=== PATIENT | male | born 1985 | race Caucasian/White ===

== ENCOUNTER → 2017-03-29 | Outpatient (CLI) | payer OTHER ==
[~2017-03-29] MED LIST: BENT10CA PO; CLONI1TA PO; EFFE37.527 PO; EFFE75CA75 PO; GABA-283 PO; LEVO150T7 PO; LIDO1OIN2 TOP; LUNE2TAB23 PO; MOBI15TA PO; OMEP10CASR PO; PRAZ2CAP PO; PRAZ5CAP PO; ROBA750T4 PO; TYLETAB14 PO; [UNRECOGNIZED DRUG - CODE] EXT
[2017-03-29 11:23] LABS: BASO % 0.6 % (0.0-1.0); EOS # 0.1 K/mm3 (0.0-0.50); LARGE UNSTAINED CELL # 0.1 K/mm3 (0.0-0.4); LARGE UNSTAINED CELL % 2.1 % (0.0-4.0); LYMPH # 2.3 K/mm3 (1.5-4.5); LYMPH % 32.1 % (24.0-44.0); MEAN CORPUSCULAR HGB CONC 36.1 g/dl (32.0-36.5); MEAN CORPUSCULAR VOLUME 85.9 fl (80.0-96.0); MONO # 0.4 K/mm3 (0.0-0.8); MONO % 5.3 % (0.0-5.0); NEUTROPHILS # 3.9 K/mm3 (1.8-7.7); PLATELET COUNT, AUTOMATED 230 k/mm3 (150-450); RED CELL DISTRIBUTION WIDTH 12.6 % (11.5-14.5); WHITE BLOOD COUNT 6.6 K/mm3 (4.0-10.0)
[2017-03-29 11:58] LABS: ERYTHROCYTE SEDIMENTATION RATE 5 mm/hr (0-15)
[2017-03-29 16:01] LABS: ALBUMIN 4.3 GM/DL (3.2-5.2); ALKALINE PHOSPHATASE 83 U/L (45-117); ALT/SGPT 76 U/L (12-78); ANION GAP 6 MEQ/L (8-16); AST/SGOT 28 U/L (15-37); BILIRUBIN,TOTAL 0.9 MG/DL (0.2-1.0); BLOOD UREA NITROGEN 20 MG/DL (7-18); CALCIUM LEVEL 9.2 MG/DL (8.5-10.1); CARBON DIOXIDE LEVEL 27 MEQ/L (21-32); CHLORIDE LEVEL 101 MEQ/L (98-107); CREATININE FOR GFR 1.02 MG/DL (0.70-1.30); FREE T4 1.18 NG/DL (0.76-1.46); GLOMERULAR FILTRATION RATE > 60.0 (>60); GLUCOSE, FASTING 93 MG/DL (70-105); POTASSIUM SERUM 4.6 MEQ/L (3.5-5.1); SODIUM LEVEL 134 MEQ/L (136-145); TOTAL PROTEIN 7.6 GM/DL (6.4-8.2)
== END ==
LOC: M LAB 10:39
PROVIDERS: ATTEND Internal Medicine Gastroenterology
DX: R19.7 Diarrhea, unspecified (principal)

== ENCOUNTER → 2017-04-06 | Outpatient (CLI) | payer OTHER ==
[~2017-04-06] MED LIST changes: +GASTROGRAFIN SOLUTION 30ML (Q9963) As Ordered ONE; +ISOVUE-370 76% 100ML VIAL (Q9967) As Ordered ONE
--- NOTE | 2017-04-06 14:40 | REP ---
REASON: Diarrhea and anal hemorrhage. COMPARISON: None. CONTRAST UTILIZED: 100 mL Isovue-370. Lung bases are clear. The precontrast-enhanced portion examination shows diffuse low density throughout the hepatic parenchyma. There are no nephroliths or choleliths. Contrast-enhanced portion of the examination shows no evidence of an enhancing hepatic lesion. The gallbladder, spleen, pancreas, adrenal glands, and kidneys are within normal limits. The abdominal aorta and para-aortic regions are within normal limits. The intra-abdominal and intrapelvic bowel loops and their mesenteries are within normal limits. No free fluid or free air is seen in the abdomen or pelvis. Bone window technique throughout the examination shows the osseous structures to be within normal limits. IMPRESSION: Rather extensive appearing diffuse fatty infiltration of the liver. Signed by Nabeel Hood DO 04/06/2017 03:20 P
== END ==
LOC: M RAD 10:50
PROVIDERS: ATTEND Internal Medicine Gastroenterology
DX: K62.5 Hemorrhage of anus and rectum (principal); R19.7 Diarrhea, unspecified; K76.0 Fatty (change of) liver, not elsewhere classified
CPT/HCPCS: 74178; Q9963; Q9967

== ENCOUNTER 2017-04-17 13:06 | Outpatient (CLI) | payer OTHER ==
[~2017-04-17] VITALS: Ht 182.9 cm; Wt 145.1 kg
[~2017-04-17 13:06] MED LIST changes: -GASTROGRAFIN SOLUTION 30ML (Q9963) As Ordered ONE; -ISOVUE-370 76% 100ML VIAL (Q9967) As Ordered ONE
[2017-04-17] MEDS ORDERED: NS 1,000 ML IV ONE (13:30)
[2017-04-17] MEDS ORDERED: PROPOFOL 200 MG/20 ML VIAL As Ordered ONE (14:22)
[2017-04-17] MEDS ORDERED: LIDOCAINE 2% INJ 100 MG/5 ML SDV (FOR ANES.) As Ordered ONE (14:23)
[2017-04-17] MEDS ORDERED: MIDAZOLAM INJ 2 MG/2 ML VIAL (J2250) As Ordered ONE (15:09)
--- NOTE | 2017-04-17 15:20 | ROOR ---
Patient Name: Enrique Peres Procedure Date: 04/17/2017 2:59 PM Date of : 1985 Age: 31 [facility]: [facility] Gender: Male Note Status: Finalized Procedure: Colonoscopy Indications: Hematochezia, Change in bowel habits, fecal urgency, incomplete emptying. Providers: Usman HERNANDEZ MD Referring MD: SHELLEY ROSA MD Requesting Provider: Medicines: Monitored Anesthesia Care Complications: No immediate complications. Procedure: Pre-Anesthesia Assessment: - The heart rate, respiratory rate, oxygen saturations, blood pressure, adequacy of pulmonary ventilation, and response to care were monitored throughout the procedure. The Colonoscope was introduced through the anus and advanced to 5 cm into the ileum. The colonoscopy was performed without difficulty. The patient tolerated the procedure well. The quality of the bowel preparation was good. Findings: The perianal and digital rectal examinations were normal. Small Internal Hemorrhoids. The terminal ileum appeared normal. The colon (entire examined portion) appeared normal. Biopsies for histology were taken with a cold forceps from the entire colon for evaluation of microscopic colitis. Impression: - Small Internal Hemorrhoids. - The examined portion of the ileum was normal. - The entire colon is normal. - Biopsies were taken with a cold forceps from the entire colon for evaluation of microscopic colitis. Recommendation: - Stop Dicyclomine (ineffective), Start Miralalx 17 gm (1 capful) once a day for constipation with overflow/incomplete emptying symptoms. - (the script was sent to your pharmacy on file) - Telephone endoscopist for pathology results in 2 weeks. Usman Hernandez MD Usman HERNANDEZ MD 04/17/2017 3:19:35 PM This report has been signed electronically. Number of Addenda: 0 Note Initiated On: 04/17/2017 2:59 PM Estimated Blood Loss: Estimated blood loss: none.
[2017-04-17 15:51] VITALS: BP 121/81
== END 2017-04-17 16:00 | disposition home or self-care (01) ==
LOC: M OPP 13:06
PROVIDERS: ATTEND Internal Medicine Gastroenterology
DX: K92.1 Melena (principal); R19.4 Change in bowel habit; R15.2 Fecal urgency; R10.9 Unspecified abdominal pain; K44.9 Diaphragmatic hernia without obstruction or gangrene; I10 Essential (primary) hypertension; E03.9 Hypothyroidism, unspecified; K58.9 Irritable bowel syndrome, unspecified; R14.0 Abdominal distension (gaseous); R12 Heartburn; M19.90 Unspecified osteoarthritis, unspecified site; M54.9 Dorsalgia, unspecified; F41.9 Anxiety disorder, unspecified; F32.9 Major depressive disorder, single episode, unspecified; G43.909 Migraine, unspecified, not intractable, without status migrainosus; M47.892 Other spondylosis, cervical region; M47.896 Other spondylosis, lumbar region; R06.02 Shortness of breath; F43.10 Post-traumatic stress disorder, unspecified
CPT/HCPCS: 45380; 88305; J2250

== ENCOUNTER 2018-05-07 17:38 | Emergency (ER) | payer OTHER ==
[2018-05-07] MEDS: NS 1,000 ML IV ×2 (17:57→18:45)
[2018-05-07 18:40] LABS: ANION GAP 13 MEQ/L (8-16); BLOOD UREA NITROGEN 28 MG/DL (7-18); CALCIUM LEVEL 9.9 MG/DL (8.5-10.1); CARBON DIOXIDE LEVEL 22 MEQ/L (21-32); CHLORIDE LEVEL 102 MEQ/L (98-107); GLOMERULAR FILTRATION RATE 36.9 (>60); GLUCOSE, FASTING 101 MG/DL (70-100); SODIUM LEVEL 137 MEQ/L (136-145)
== END 2018-05-07 19:26 | disposition home or self-care (01) ==
LOC: M ED 17:38
DX: E86.0 Dehydration (principal); T67.2XXA Heat cramp, initial encounter; X30.XXXA Exposure to excessive natural heat, initial encounter; Y92.89 Other specified places as the place of occurrence of the external cause; E07.9 Disorder of thyroid, unspecified; Z79.899 Other long term (current) drug therapy; Z79.890 Hormone replacement therapy; Z87.891 Personal history of nicotine dependence
CPT/HCPCS: 80048

== ENCOUNTER → 2019-06-09 | Outpatient (REF) | payer OTHER ==
[~2019-06-09] MED LIST changes: +EFFE37.5 PO; -EFFE37.527 PO; +EFFE75CA2 PO; -EFFE75CA75 PO; -GABA-283 PO; +GABA-845 PO
[2019-06-09 12:29] LABS: BLOOD UREA NITROGEN 20 MG/DL (7-18); CALCIUM LEVEL 9.8 MG/DL (8.5-10.1); CARBON DIOXIDE LEVEL 29 MEQ/L (21-32); CHLORIDE LEVEL 100 MEQ/L (98-107); CREATININE FOR GFR 0.95 MG/DL (0.70-1.30); GLOMERULAR FILTRATION RATE > 60.0 (>60); GLUCOSE, FASTING 100 MG/DL (70-100); POTASSIUM SERUM 4.4 MEQ/L (3.5-5.1); SODIUM LEVEL 136 MEQ/L (136-145)
== END ==
LOC: M SFHCPLAZ 08:58
PROVIDERS: ATTEND Family Medicine
DX: I10 Essential (primary) hypertension (principal)

== ENCOUNTER 2019-09-05 08:25 | Inpatient (IN) | payer OTHER ==
[~2019-09-05] VITALS: Ht 180.3 cm; Wt 146.0 kg
[2019-09-05] MEDS ORDERED: VALS1TAB66 PO (08:35)
[2019-09-05] MEDS ORDERED: VENL150C43 PO (08:35)
[2019-09-05] MEDS ORDERED: CHLO125TA PO (08:35)
[2019-09-05] MEDS ORDERED: IBUPROFEN 800 MG TAB PO ONE (09:00)
[2019-09-05] MEDS ORDERED: NS 1,000 ML IV ONE (09:30)
[2019-09-05 09:57] LABS: BASO # 0.1 10^3/uL (0.0-0.2); BASO % 0.2 % (0.0-1.0); HEMATOCRIT 46.5 % (42.0-52.0); HEMOGLOBIN 15.7 g/dl (13.5-17.5); LYMPH # 4.3 10^3/uL (1.5-5.0); LYMPH % 14.8 % (24.0-44.0); MEAN CORPUSCULAR HEMOGLOBIN 29.2 pg (27.0-33.0); MEAN CORPUSCULAR HGB CONC 33.8 g/dl (32.0-36.5); MEAN CORPUSCULAR VOLUME 86.6 fl (80.0-96.0); MONO # 1.5 10^3/uL (0.0-0.8); MONO % 5.1 % (0.0-5.0); NEUTROPHILS # 23.1 10^3/uL (1.5-8.5); NEUTROPHILS % 78.7 % (36.0-66.0); PLATELET COUNT, AUTOMATED 276 10^3/uL (150-450); RED BLOOD COUNT 5.37 10^6/uL (4.30-6.10); WHITE BLOOD COUNT 29.4 10^3/uL (4.0-10.0)
--- NOTE | 2019-09-05 10:24 | REP ---
Clinical: Cough and shortness of breath. Technique: PA and lateral. Comparison: None. Findings: Large left upper lobe opacity likely represents acute pneumonia. Clinical correlation is recommended along with follow-up to resolution. Remainder examination is relatively normal. Impression: Large left upper lobe opacity. Correlation and follow up to resolution recommended. Differential diagnosis includes pneumonia and malignancy cannot definitively be excluded. Electronically Signed by Lorenzo Nagy MD 09/05/2019 10:16 A
[2019-09-05 10:30] LABS: INFLUENZA A AMPLIFICATION NEGATIVE (NEGATIVE); INFLUENZA B AMPLIFICATION NEGATIVE (NEGATIVE)
[2019-09-05] MEDS ORDERED: ALBUTEROL SULFATE 2.5 MG/0.5 ML INH NEB SOLN NEB ONE (10:30)
[2019-09-05 10:38] LABS: ALBUMIN 4.1 GM/DL (3.2-5.2); ALT/SGPT 50 U/L (12-78); BILIRUBIN,DIRECT 0.5 MG/DL (0.0-0.2); BILIRUBIN,TOTAL 2.4 MG/DL (0.2-1.0); BLOOD UREA NITROGEN 11 MG/DL (7-18); CALCIUM LEVEL 9.4 MG/DL (8.5-10.1); CARBON DIOXIDE LEVEL 27 MEQ/L (21-32); CHLORIDE LEVEL 98 MEQ/L (98-107); CREATININE FOR GFR 1.22 MG/DL (0.70-1.30); GLOMERULAR FILTRATION RATE > 60.0 (>60); GLUCOSE, FASTING 90 MG/DL (70-100); POTASSIUM SERUM 3.7 MEQ/L (3.5-5.1); SODIUM LEVEL 135 MEQ/L (136-145); THYROXINE (T4) 9.1 UG/DL (4.5-12.0); TOTAL PROTEIN 7.8 GM/DL (6.4-8.2)
[2019-09-05] MEDS ORDERED: NS IV ONE (10:45)
[2019-09-05] MEDS ORDERED: LevoFLOXacin IV 750 MG in IV 1 EA IV ONE (11:00)
[2019-09-05] MEDS ORDERED: VANCOMYCIN HCL IV SCH (11:30)
[2019-09-05] MEDS ORDERED: FLUID PLACE HOLDER IV SCH (11:30)
[2019-09-05] MEDS ORDERED: SODIUM CHLORIDE 0.9% 1000ML IV SCH (11:30)
[2019-09-05] MEDS ORDERED: LEVO175T19 PO (11:34)
[2019-09-05] MEDS ORDERED: ACET-897 PO (11:34)
[2019-09-05] MEDS ORDERED: ISOVUE-370 76% 100ML VIAL (Q9967) As Ordered ONE (11:34)
--- NOTE | 2019-09-05 11:44 | HPEPDOC ---
General Date of Admission 09/05/19 Date of Service: Sep 05, 2019 Chief Complaint The patient is a 33-year-old male admitted with a reason for visit of Flu Like Symptoms. Source: Patient Exam Limitations: No limitations Timing/Duration: Week(s) Severity: Severe Associated Symptoms: Cough, Fever, Chills, Shortness of breath History of Present Illness Patient is 33 years old male with past medical history of hypertension, hypothyroidism, depression presented hospital with increased shortness of breath associated with cough and sputum production. Patient stated that his symptoms started one month ago and became worse, he received treatment in urgent care with doxycycline, he completed the 10 days course around 5-6 days ago. He stated when he took doxycycline symptoms have been resolved. However when he stopped taking doxycycline he started feeling fever, increased cough and weakness. Today patient was febrile with temperature around 103, his sputum is yellowish. In ER patient was found to have leukocytosis of 25, lactic acid of 2.5, chest x-ray showed left lobe infiltrate consistent with pneumonia Home Medications Scheduled Chlorthalidone (Chlorthalidone) 25 Mg Tablet, 25 MG PO DAILY, (Reported) Levothyroxine Sodium (Levoxyl) 175 Mcg Tablet, 175 MCG PO DAILY, (Reported) Valsartan (Valsartan) 80 Mg Tablet, 80 MG PO DAILY, (Reported) Venlafaxine HCl (Venlafaxine HCl ER) 150 Mg Cap.er.24h, 150 MG PO QHS, (Reported) Scheduled PRN Acetaminophen (Tylenol Extra Strength) 500 Mg Tablet, 1,000 MG PO QID PRN for PAIN, (Reported) Allergies Coded Allergies: No Known Allergies (Unverified , 04/06/17) Past Medical History Medical History Hypertension, depression, hypothyroidism Family History Mother had diabetes, father has hypertension, hyperlipidemia Social History * Smoker: former Smoker, quit less than 1 year, greater than 1 pack/day Alcohol: Denies Drugs: denies A-FIB/CHADSVASC A-FIB History Current/History of A-Fib/PAF?: No Current PO Anticoag Therapy: No Review of Systems Constitutional: Reports: Chills, Fever, Fatigue Eyes: Denies: Pain, Vision change ENT: Denies: Head Aches Skin: Denies: Rash Pulmonary: Reports: Dyspnea, Cough Cardiovascular: Denies: Chest Pain, Palpitations Gastrointestinal: Denies: Nausea, Vomiting Genitourinary: Denies: Dysuria, Frequency Hematologic: Denies: Bruising, Bleeding Excessively Endocrine: Denies: Polydipsia, Polyphagia Musculoskeletal: Denies: Neck Pain, Back Pain Neurological: Denies: Weakness, Numbness Psych: Reports: Mood Normal Physical Examination General Exam: Positive: Alert, Cooperative Eye Exam: Positive: PERRLA ENT Exam: Positive: Atraumatic, Mucous membr. moist/pink Neck Exam: Positive: Supple; Negative: JVD Chest Exam: Positive: Rhonchi, Diminished Heart Exam: Positive: Rate Normal Telemetry: Positive: No significant arrhythmia Abdomen Exam: Positive: Normal bowel sounds Extremity Exam: Negative: Clubbing, Cyanosis Skin Exam: Positive: Nl turgor and temperature Neuro Exam: Positive: Normal Gait Psych Exam: Positive: Mental status NL Vital Signs Vital Signs Date Time Temp Pulse Resp B/P (MAP) Pulse Ox O2 Delivery O2 Flow Rate FiO2 09/05/19 11:05 100.7 09/05/19 09:30 Room Air 09/05/19 09:30 09/05/19 08:25 116 18 97 Laboratory Data Labs 24H Laboratory Tests 2 09/05/19 09:30: Influenza Type A (RT-PCR) NEGATIVE, Influenza Type B (RT-PCR) NEGATIVE 09/05/19 09:40: Immature Granulocyte % (Auto) 1.2, Neutrophils (%) (Auto) 78.7H, Lymphocytes (%) (Auto) 14.8L, Monocytes (%) (Auto) 5.1H, Eosinophils (%) (Auto) 0.0, Basophils (%) (Auto) 0.2, Neutrophils # (Auto) 23.1H, Lymphocytes # (Auto) 4.3, Monocytes # (Auto) 1.5H, Eosinophils # (Auto) 0.0, Basophils # (Auto) 0.1, Nucleated Red Blood Cells % (auto) 0.0, Anion Gap 10, Glomerular Filtration Rate > 60.0, Lactic Acid Level 2.5*H, Calcium Level 9.4, Total Bilirubin 2.4H, Direct Bilirubin 0.5H, Aspartate Amino Transf (AST/SGOT) 29, Alanine Aminotransferase (ALT/SGPT) 50, Alkaline Phosphatase 78, Total Protein 7.8, Albumin 4.1, Albumin/Globulin Ratio 1.11, Thyroid Stimulating Hormone (TSH) 2.600, Thyroxine (T4) 9.1 CBC/BMP Laboratory Tests 09/05/19 09:40 Microbiology Microbiology 09/05/19 Gram Stain, Received Pending 09/05/19 Sputum Culture, Received Pending 09/05/19 Group A Streptococcus Screen (SARBJIT), Received Pending Assessment/Plan Patient is 33 years old male with past medical history of hypertension, hypothyroidism, depression presented hospital with increased shortness of breath associated with cough and sputum production. Patient stated that his symptoms started one month ago and became worse, he received treatment in urgent care with doxycycline, he completed the 10 days course around 5-6 days ago. In ER patient was found to have leukocytosis of 25, lactic acid of 2.5, chest x-ray showed left lobe infiltrate consistent with pneumonia Problems (1) Sepsis Status: Acute Problem Text: Secondary to community-acquired pneumonia Patient has dyspnea, leukocytosis, lactic acidosis Blood culture, sputum culture IV fluid Azithromycin IV, ceftriaxone IV, vancomycin IV MRSA screen (2) Pneumonia involving left lung Status: Acute Problem Text: Patient failed treatment with doxycycline in the outpatient settings There is concern for MRSA pneumonia given left lung infiltrate and previous antibiotic treatment Incentive spirometry Antibiotic therapy Inhalers We will check urine for streptococcus and legionella Plan / VTE VTE Prophylaxis Ordered?: Yes SOPHIE LONDON DO Sep 05, 2019 11:44
--- NOTE | 2019-09-05 12:07 | REP ---
Clinical: Left upper lobe opacity on x-ray. Technique: Axial contrast enhanced images from the thoracic inlet to the upper abdomen with coronal and sagittal re-formations using 100 ml Isovue 370 intravenous contrast material. Findings: Moderate area of mass-like consolidation in the left upper lobe with associated reactive adenopathy in the mediastinum and hilum. No further areas of consolidation or mass. No effusion. No pneumothorax. Tracheobronchial tree is relatively patent. The mediastinum demonstrates normal thoracic aorta, pulmonary vasculature and heart/pericardium. Musculoskeletal structures are intact. Limited upper abdomen demonstrates hepatic steatosis and normal bilateral adrenal glands. Impression: Moderate area of consolidation in the left upper lobe with associated reactive adenopathy. Findings likely represent acute pneumonia and follow up to resolution is recommended. Electronically Signed by Lorenzo Nagy MD 09/05/2019 11:58 A
[2019-09-05] MEDS: IPRATROPIUM 0.5MG/ALBUTEROL 2.5MG INH SOL UD 3ML (DUONEB)(J7620) INH SCH ×3 (12:30→20:14)
[2019-09-05 13:33] VITALS: BP 110/69
[2019-09-05] MEDS: cefTRIAXone SOD 2 GM in D5W MINI-BAG PLUS 50 ML IV SCH (13:50)
[2019-09-05] MEDS ORDERED: VANCOMYCIN HCL 1,000 MG, VIAL MATE ADAPTER 1 EACH in D5W 250 ML IV SCH (14:00)
[2019-09-05] MEDS: NS 1,000 ML IV SCH ×2 (14:59→19:20)
[2019-09-05 16:00] VITALS: BP 144/88
[2019-09-05] MEDS ORDERED: ONDANSETRON 4MG/2ML VIAL (J2405) IV PRN (16:15)
[2019-09-05] MEDS ORDERED: ACETAMINOPHEN TAB 650MG DOSE (2X325MG) PO PRN (16:45)
[2019-09-05] MEDS: AZITHROMYCIN INJ 500 MG, VIAL MATE ADAPTER 1 EACH in D5W 250 ML IV SCH (16:56)
[2019-09-05] MEDS: guaiFENesin/CODEINE SYRUP 5 ML UDC PO SCH (16:56)
[2019-09-05 16:58] VITALS: BP 141/87
[2019-09-05 16:59] LABS: CK-MB VALUE MASS 1.4 NG/ML (<3.6); CPK CREATINE PHOSPHOKINASE 289 U/L (39-308); MB/CK RELATIVE INDEX 0.48 (< OR =4); TROPONIN I < 0.02 NG/ML (< 0.10)
[2019-09-05 20:00] VITALS: BP 122/84
[2019-09-05] MEDS: HEPARIN SOD (PORCINE) 5000 UNITS/ML VIAL SC SCH (21:48)
[2019-09-05 23:59] VITALS: BP 131/83
[2019-09-06] MEDS: guaiFENesin/CODEINE SYRUP 5 ML UDC PO SCH ×4 (00:21→17:08)
[2019-09-06] MEDS: VENLAFAXINE **XR** 75MG CAPSULE PO SCH ×2 (02:58→21:23)
[2019-09-06 03:53] LABS: HEMATOCRIT 41.8 % (42.0-52.0); MEAN CORPUSCULAR HEMOGLOBIN 29.9 pg (27.0-33.0); MEAN CORPUSCULAR HGB CONC 33.5 g/dl (32.0-36.5); MEAN CORPUSCULAR VOLUME 89.1 fl (80.0-96.0); PLATELET COUNT, AUTOMATED 180 10^3/uL (150-450); RED BLOOD COUNT 4.69 10^6/uL (4.30-6.10); WHITE BLOOD COUNT 16.1 10^3/uL (4.0-10.0)
[2019-09-06 04:00] VITALS: BP 146/87
[2019-09-06] MEDS: IPRATROPIUM 0.5MG/ALBUTEROL 2.5MG INH SOL UD 3ML (DUONEB)(J7620) INH SCH ×6 (04:00→19:47)
[2019-09-06 04:15] LABS: BLOOD UREA NITROGEN 8 MG/DL (7-18); CALCIUM LEVEL 8.1 MG/DL (8.5-10.1); CARBON DIOXIDE LEVEL 22 MEQ/L (21-32); CHLORIDE LEVEL 108 MEQ/L (98-107); CREATININE FOR GFR 0.81 MG/DL (0.70-1.30); GLOMERULAR FILTRATION RATE > 60.0 (>60); GLUCOSE, FASTING 112 MG/DL (70-100); POTASSIUM SERUM 3.6 MEQ/L (3.5-5.1); SODIUM LEVEL 136 MEQ/L (136-145)
[2019-09-06] MEDS: NS 1,000 ML IV SCH (05:14)
[2019-09-06 08:00] VITALS: BP 133/75
[2019-09-06] MEDS: LEVOTHYROXINE 25MCG TABLET (0.025MG) PO SCH (08:57)
[2019-09-06] MEDS: LEVOTHYROXINE 150MCG TABLET (0.15MG) PO SCH (08:58)
[2019-09-06] MEDS: VALSARTAN 80 MG TAB (DIOVAN) PO SCH (08:58)
[2019-09-06] MEDS: HEPARIN SOD (PORCINE) 5000 UNITS/ML VIAL SC SCH ×2 (08:58→21:23)
[2019-09-06] MEDS ORDERED: POTASSIUM CHLORIDE 10 MEQ SR TABLET PO ONE (09:00)
[2019-09-06] MEDS: CHLORTHALIDONE 25 MG TAB PO SCH (10:51)
[2019-09-06] MEDS: cefTRIAXone SOD 2 GM in D5W MINI-BAG PLUS 50 ML IV SCH (11:51)
[2019-09-06 12:00] VITALS: BP 131/73
--- NOTE | 2019-09-06 13:23 | IPNPDOC ---
Text Note Date of Service The patient was seen on 09/06/19. NOTE Subjective: Patient stated that he feels much better today, continues to have cough with yellowish sputum. His sputum with some blood streaks. Objective: GENERAL APPEARANCE: Morbidly obese male not in apparent distress HEENT: Normocephalic, atraumatic. Mucous members moist and pink CARDIOVASCULAR: Regular rate and rhythm. No murmurs, rubs or gallops. Radial pul ses are intact. There is no lower extremity edema LUNGS: Diminished lung sounds bilaterally, mild rhonchi over left lung area ABDOMEN: Abdomen is soft and nontender. MUSCULOSKELETAL: Range of motion is intact in all 4 extremities NEUROLOGICAL: Cranial nerves II-12 are grossly intact. Speech is not dysarthric (1) Sepsis Resolved Secondary to community-acquired pneumonia Patient has dyspnea, leukocytosis, lactic acidosis Blood culture pending, sputum culture positive for gram-positive cocci in c lusters and gram-positive rods MRSA negative, vancomycin IV DC Azithromycin IV, ceftriaxone IV, (2) Pneumonia involving left lung Patient failed treatment with doxycycline in the outpatient settings Incentive spirometry Antibiotic therapy Inhalers streptococcus and legionella result pending VS,Beccae, I+O VS, Beccae, I+O Laboratory Tests 09/06/19 03:41 Vital Signs Date Time Temp Pulse Resp B/P (MAP) Pulse Ox O2 Delivery O2 Flow Rate FiO2 09/06/19 12:00 97.6 85 18 131/73 (92) 92 Room Air I&O- Last 24 Hours up to 6 AM 09/06/19 05:59 Intake Total 6485 ml Output Total 2600 ml Balance 3885 ml SOPHIE LONDON DO Sep 06, 2019 13:22
[2019-09-06 16:00] VITALS: BP 113/62
[2019-09-06] MEDS: AZITHROMYCIN INJ 500 MG, VIAL MATE ADAPTER 1 EACH in D5W 250 ML IV SCH (17:09)
[2019-09-06 20:00] VITALS: BP 119/66
[2019-09-06 23:59] VITALS: BP 130/76
[2019-09-07] MEDS: IPRATROPIUM 0.5MG/ALBUTEROL 2.5MG INH SOL UD 3ML (DUONEB)(J7620) INH SCH ×6 (00:02→21:31)
[2019-09-07] MEDS: guaiFENesin/CODEINE SYRUP 5 ML UDC PO SCH ×5 (00:05→23:55)
[2019-09-07 04:00] VITALS: BP 120/75
[2019-09-07 04:39] LABS: HEMATOCRIT 40.7 % (42.0-52.0); HEMOGLOBIN 13.5 g/dl (13.5-17.5); MEAN CORPUSCULAR HEMOGLOBIN 29.3 pg (27.0-33.0); MEAN CORPUSCULAR HGB CONC 33.2 g/dl (32.0-36.5); MEAN CORPUSCULAR VOLUME 88.5 fl (80.0-96.0); PLATELET COUNT, AUTOMATED 250 10^3/uL (150-450); WHITE BLOOD COUNT 9.7 10^3/uL (4.0-10.0)
[2019-09-07 05:01] LABS: BLOOD UREA NITROGEN 9 MG/DL (7-18); CALCIUM LEVEL 8.6 MG/DL (8.5-10.1); CARBON DIOXIDE LEVEL 25 MEQ/L (21-32); CHLORIDE LEVEL 104 MEQ/L (98-107); CREATININE FOR GFR 0.85 MG/DL (0.70-1.30); GLOMERULAR FILTRATION RATE > 60.0 (>60); GLUCOSE, FASTING 92 MG/DL (70-100); POTASSIUM SERUM 3.7 MEQ/L (3.5-5.1); SODIUM LEVEL 138 MEQ/L (136-145)
[2019-09-07] MEDS: LEVOTHYROXINE 150MCG TABLET (0.15MG) PO SCH (05:35)
[2019-09-07] MEDS: LEVOTHYROXINE 25MCG TABLET (0.025MG) PO SCH (05:35)
[2019-09-07 08:00] VITALS: BP 128/66
[2019-09-07] MEDS: HEPARIN SOD (PORCINE) 5000 UNITS/ML VIAL SC SCH ×2 (08:23→20:33)
[2019-09-07] MEDS: VALSARTAN 80 MG TAB (DIOVAN) PO SCH (08:23)
[2019-09-07] MEDS: CHLORTHALIDONE 25 MG TAB PO SCH (08:23)
--- NOTE | 2019-09-07 11:20 | IPNPDOC ---
Text Note Date of Service The patient was seen on 09/07/19. NOTE Subjective: Patient stated that he feels better today, he is able to walk w ithout shortness of breath He continues to have cough with yellowish sputum Objective: GENERAL APPEARANCE: Morbidly obese male not in apparent distress HEENT: Normocephalic, atraumatic. Mucous members moist and pink CARDIOVASCULAR: Regular rate and rhythm. No murmurs, rubs or gallops. Radial pulses are intact. There is no lower extremity edema LUNGS: Diminished lung sounds bilaterally, mild rhonchi over left lung area ABDOMEN: Abdomen is soft and nontender. MUSCULOSKELETAL: Range of motion is intact in all 4 extremities NEUROLOGICAL: Cranial nerves II-12 are grossly intact. Speech is not dysarthric (1) Sepsis Resolved Secondary to community-acquired pneumonia Patient had dyspnea, leukocytosis, lactic acidosis on admission Blood culture negative, sputum culture positive for gram-positive cocci in clusters and gram-positive rods MRSA negative, vancomycin IV DC Continue with Azithromycin IV, ceftriaxone IV, (2) Pneumonia involving left lung Improved, leukocytosis resolved Patient failed treatment with doxycycline in the outpatient settings Incentive spirometry Antibiotic therapy Inhalers streptococcus and legionella result pending VS,Fishbone, I+O VS, Fishbone, I+O Laboratory Tests 09/07/19 04:23 Vital Signs Date Time Temp Pulse Resp B/P (MAP) Pulse Ox O2 Delivery O2 Flow Rate FiO2 09/07/19 08:23 120/75 09/07/19 08:00 96.3 76 16 92 Room Air I&O- Last 24 Hours up to 6 AM 09/07/19 06:00 Intake Total 4060 ml Output Total 1250 ml Balance 2810 ml SOPHIE LONDON DO Sep 07, 2019 11:20
[2019-09-07] MEDS: cefTRIAXone SOD 2 GM in D5W MINI-BAG PLUS 50 ML IV SCH (11:59)
[2019-09-07 12:00] VITALS: BP 120/68
[2019-09-07 16:00] VITALS: BP 142/70
[2019-09-07] MEDS: AZITHROMYCIN INJ 500 MG, VIAL MATE ADAPTER 1 EACH in D5W 250 ML IV SCH (17:17)
[2019-09-07 20:00] VITALS: BP 127/62
[2019-09-07] MEDS: VENLAFAXINE **XR** 75MG CAPSULE PO SCH (20:33)
[2019-09-07 23:59] VITALS: BP 114/69
--- NOTE | 2019-09-08 00:01 | ECGEPIP ---
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
[2019-09-08] MEDS: IPRATROPIUM 0.5MG/ALBUTEROL 2.5MG INH SOL UD 3ML (DUONEB)(J7620) INH SCH ×3 (00:02→07:36)
[2019-09-08 04:00] VITALS: BP 122/70
[2019-09-08 05:44] LABS: HEMATOCRIT 42.2 % (42.0-52.0); HEMOGLOBIN 14.2 g/dl (13.5-17.5); MEAN CORPUSCULAR HEMOGLOBIN 29.3 pg (27.0-33.0); MEAN CORPUSCULAR HGB CONC 33.6 g/dl (32.0-36.5); PLATELET COUNT, AUTOMATED 319 10^3/uL (150-450); RED BLOOD COUNT 4.85 10^6/uL (4.30-6.10); WHITE BLOOD COUNT 8.3 10^3/uL (4.0-10.0)
[2019-09-08] MEDS: LEVOTHYROXINE 150MCG TABLET (0.15MG) PO SCH (06:00)
[2019-09-08] MEDS: guaiFENesin/CODEINE SYRUP 5 ML UDC PO SCH (06:00)
[2019-09-08] MEDS: LEVOTHYROXINE 25MCG TABLET (0.025MG) PO SCH (06:00)
[2019-09-08 06:09] LABS: BLOOD UREA NITROGEN 15 MG/DL (7-18); CALCIUM LEVEL 9.1 MG/DL (8.5-10.1); CARBON DIOXIDE LEVEL 24 MEQ/L (21-32); CHLORIDE LEVEL 104 MEQ/L (98-107); CREATININE FOR GFR 0.95 MG/DL (0.70-1.30); GLOMERULAR FILTRATION RATE > 60.0 (>60); GLUCOSE, FASTING 96 MG/DL (70-100); POTASSIUM SERUM 3.9 MEQ/L (3.5-5.1); SODIUM LEVEL 138 MEQ/L (136-145)
[2019-09-08 07:53] VITALS: BP 145/86
[2019-09-08] MEDS ORDERED: AZIT500T5 PO (08:56)
[2019-09-08] MEDS ORDERED: GUAI1SOL7 PO (08:56)
[2019-09-08] MEDS ORDERED: AUGM875T28 PO (08:56)
[2019-09-08] MEDS ORDERED: ROBILIQ13 PO (08:58)
[2019-09-08] MEDS: HEPARIN SOD (PORCINE) 5000 UNITS/ML VIAL SC SCH (10:11)
[2019-09-08 10:12] VITALS: BP 145/86
[2019-09-08] MEDS: VALSARTAN 80 MG TAB (DIOVAN) PO SCH (10:12)
[2019-09-08] MEDS: CHLORTHALIDONE 25 MG TAB PO SCH (10:12)
[2019-09-08 14:06] LABS: BODY FLUID CULTURE Not indicated. (.); LEGIONELLA ANTIGEN URINE Negative (Negative); ORGANISM ID Not indicated. (.); SPECIMEN SOURCE Urine (.); URINE STREP PNEUMONIAE ANTIGEN Negative (Negative)
--- NOTE | 2019-09-08 16:16 | DS.PDOC ---
Discharge Summary General Date of Admission Sep 05, 2019 at 11:22 Date of Discharge 09/08/19 Discharge Summary PROCEDURES PERFORMED DURING STAY: [None]. ADMITTING DIAGNOSES: Sepsis Pneumonia involving left lung DISCHARGE DIAGNOSES: Sepsis Pneumonia involving left lung COMPLICATIONS/CHIEF COMPLAINT: Lt Upper Lobe Pneumonia. HISTORY OF PRESENT ILLNESS: Patient is 33 years old male with past medical h istory of hypertension, hypothyroidism, depression presented hospital with increased shortness of breath associated with cough and sputum production. Patient stated that his symptoms started one month ago and became worse, he received treatment in urgent care with doxycycline, he completed the 10 days course around 5-6 days ago. In ER patient was found to have leukocytosis of 25, lactic acid of 2.5, chest x-ray showed left lobe infiltrate consistent with pneumonia. CT scan please see below HOSPITAL COURSE: During hospital course patient received treatment with IV hydration, azithromycin IV, inhalers and ceftriaxone IV DISCHARGE MEDICATIONS: Please see below. ALLERGIES: Please see below. PHYSICAL EXAMINATION ON DISCHARGE: VITAL SIGNS: Please see below. GENERAL APPEARANCE: Morbidly obese male not in apparent distress HEENT: Normocephalic, atraumatic. Mucous members moist and pink CARDIOVASCULAR: Regular rate and rhythm. No murmurs, rubs or gallops. Radial pulses are intact. There is no lower extremity edema LUNGS: Diminished lung sounds bilaterally, mild rhonchi over left lung area ABDOMEN: Abdomen is soft and nontender. MUSCULOSKELETAL: Range of motion is intact in all 4 extremities NEUROLOGICAL: Cranial nerves II-12 are grossly intact. Speech is not dysarthric LABORATORY DATA: Please see below. IMAGING: Clinical: Left upper lobe opacity on x-ray. Technique: Axial contrast enhanced images from the thoracic inlet to the upper abdomen with coronal and sagittal re-formations using 100 ml Isovue 370 intravenous contrast material. Findings: Moderate area of mass-like consolidation in the left upper lobe with associated reactive adenopathy in the mediastinum and hilum. No further areas of consolidation or mass. No effusion. No pneumothorax. Tracheobronchial tree is relatively patent. The mediastinum demonstrates normal thoracic aorta, pulmonary vasculature and heart/pericardium. Musculoskeletal structures are intact. Limited upper abdomen demonstrates hepatic steatosis and normal bilateral adrenal glands. Impression: Moderate area of consolidation in the left upper lobe with associated reactive adenopathy. Findings likely represent acute pneumonia and follow up to resolution is recommended. PROGNOSIS: Favorable ACTIVITY: As tolerated DIET: Cardiac DISCHARGE PLAN: Home DISPOSITION: 01 Home, Self-Care. DISCHARGE INSTRUCTIONS: Continue incentive spirometry for next 10 days, sleep study in the outpatient settings ITEMS TO FOLLOWUP ON ON OUTPATIENT: Continue taking antibiotics as prescribed. DISCHARGE CONDITION: Stable TIME SPENT ON DISCHARGE: Greater than 20 minutes. Vital Signs/I&Os Vital Signs Date Time Temp Pulse Resp B/P (MAP) Pulse Ox O2 Delivery O2 Flow Rate FiO2 09/08/19 10:12 145/86 09/08/19 07:53 97.3 77 18 98 Room Air I&O- Last 24 Hours up to 6 AM 09/08/19 06:00 Intake Total 1720 ml Output Total 625 ml Balance 1095 ml Laboratory Data Labs 24H Laboratory Tests 2 09/08/19 05:19: Nucleated Red Blood Cells % (auto) 0.0, Anion Gap 10, Glomerular Filtration Rate > 60.0, Calcium Level 9.1 CBC/BMP Laboratory Tests 09/08/19 05:19 Microbiology Microbiology 09/05/19 Blood Culture - Preliminary, Resulted No Growth after 72 hours. All specime... 09/05/19 Gram Stain - Final, Complete 09/05/19 Sputum Culture - Final, Complete 09/05/19 Group A Streptococcus Screen (SARBJIT) - Final, Complete Discharge Medications Scheduled Amoxicillin/Potassium Clav (Augmentin 875-125 Tablet) 1 Each Tablet, 1 TAB PO BID Azithromycin (Azithromycin) 500 Mg Tablet, 1 TAB PO DAILY Chlorthalidone (Chlorthalidone) 25 Mg Tablet, 25 MG PO DAILY, (Reported) Guaifen/Dextromethorphan/PE (Robitussin Cough-Cold Cf Liq) 118 Ml Liquid, 5 ML PO Q8H Levothyroxine Sodium (Levoxyl) 175 Mcg Tablet, 175 MCG PO DAILY, (Reported) Valsartan (Valsartan) 80 Mg Tablet, 80 MG PO DAILY, (Reported) Venlafaxine HCl (Venlafaxine HCl ER) 150 Mg Cap.er.24h, 150 MG PO QHS, (Reported) Scheduled PRN Acetaminophen (Tylenol Extra Strength) 500 Mg Tablet, 1,000 MG PO QID PRN for PAIN, (Reported) Allergies Coded Allergies: No Known Allergies (Unverified , 04/06/17) SOPHIE LONDON DO Sep 08, 2019 16:16
== END 2019-09-08 11:24 | disposition home or self-care (01) | DRG 871 ==
LOC: M ED 08:25 → M ED INP 11:22 → M PCU 13:34
PROVIDERS: ADMIT Internal Medicine; ATTEND Internal Medicine
DX: A41.9 Sepsis, unspecified organism (principal); J18.9 Pneumonia, unspecified organism; I10 Essential (primary) hypertension; E03.9 Hypothyroidism, unspecified; F32.9 Major depressive disorder, single episode, unspecified; E66.01 Morbid (severe) obesity due to excess calories; Z79.899 Other long term (current) drug therapy; Z87.891 Personal history of nicotine dependence

== ENCOUNTER → 2019-09-17 | Outpatient (CLI) | payer OTHER ==
[~2019-09-17] MED LIST changes: +ACET-897 PO; +AUGM875T28 PO; +AZIT500T5 PO; +CHLO125TA PO; +GUAI1SOL7 PO; +LEVO175T19 PO; +ROBILIQ13 PO; +VALS1TAB66 PO; +VENL150C43 PO
--- NOTE | 2019-09-18 11:22 | REPPI ---
Clinical: Pneumonia . Comparison: 09/05/2019 . Technique: PA and lateral. Findings: The mediastinum and cardiac silhouette are normal. The lung tatum are clear and without acute consolidation, effusion, or pneumothorax. Previous left lobe pneumonia resolved. The skeletal structures are intact and normal. Impression: 1. No acute cardiopulmonary process. 2. Previous left-sided pneumonia resolved. Electronically Signed by Lorenzo Nagy MD 09/18/2019 05:28 A
== END ==
LOC: M PLAIMG 11:59
PROVIDERS: ATTEND Nurse Practitioner Adult Health
DX: Z09 Encounter for follow-up examination after completed treatment for conditions other than malignant neoplasm (principal); Z87.09 Personal history of other diseases of the respiratory system
CPT/HCPCS: 71046; G0463

== ENCOUNTER → 2020-07-14 | Outpatient (REF) | payer OTHER ==
[2020-07-14 20:30] LABS: ALBUMIN 4.4 GM/DL (3.2-5.2); ALT/SGPT 87 U/L (12-78); BILIRUBIN,TOTAL 1.1 MG/DL (0.2-1.0); BLOOD UREA NITROGEN 16 MG/DL (7-18); CALCIUM LEVEL 9.7 MG/DL (8.5-10.1); CARBON DIOXIDE LEVEL 28 MEQ/L (21-32); CHLORIDE LEVEL 103 MEQ/L (98-107); CREATININE FOR GFR 1.26 MG/DL (0.70-1.30); GLOMERULAR FILTRATION RATE > 60.0 (>60); GLUCOSE, FASTING 117 MG/DL (70-100); SODIUM LEVEL 138 MEQ/L (136-145); TOTAL PROTEIN 7.6 GM/DL (6.4-8.2)
== END ==
LOC: M SFHCPLAZ 13:45
PROVIDERS: ATTEND Nurse Practitioner Adult Health
DX: I10 Essential (primary) hypertension (principal); E03.9 Hypothyroidism, unspecified; Z13.1 Encounter for screening for diabetes mellitus
CPT/HCPCS: 36415; 80053; 83036; 84443; G0463

== ENCOUNTER → 2020-07-23 | Outpatient (CLI) | payer OTHER | LOC: M LABSMTC 12:37 | PROVIDERS: ATTEND Family Medicine | DX: Z20.828 Contact with and (suspected) exposure to other viral communicable diseases (principal) ==

== ENCOUNTER → 2020-08-12 | Outpatient (CLI) | payer OTHER | LOC: M LABSMTC 14:08 | PROVIDERS: ATTEND Family Medicine | DX: Z20.828 Contact with and (suspected) exposure to other viral communicable diseases (principal) ==

== ENCOUNTER → 2021-04-11 | Outpatient (CLI) | payer OTHER, SELFPAY ==
[~2021-04-11] MED LIST changes: +GABA-283 PO; -GABA-845 PO
== END ==
LOC: M LABSMTC 11:11
PROVIDERS: ATTEND Family Medicine
DX: Z20.822 Contact with and (suspected) exposure to COVID-19 (principal)
CPT/HCPCS: C9803; U0003

== ENCOUNTER → 2022-07-06 | Outpatient (CLI) | payer OTHER ==
[2022-07-06 12:33] LABS: HEMATOCRIT 46.4 % (42.0-52.0); HEMOGLOBIN 15.5 g/dl (13.5-17.5); MEAN CORPUSCULAR HEMOGLOBIN 29.1 pg (27.0-33.0); MEAN CORPUSCULAR HGB CONC 33.4 g/dl (32.0-36.5); MEAN CORPUSCULAR VOLUME 87.1 fl (80.0-96.0); PLATELET COUNT, AUTOMATED 270 10^3/uL (150-450); RED BLOOD COUNT 5.33 10^6/uL (4.30-6.10); WHITE BLOOD COUNT 10.2 10^3/uL (4.0-10.0)
[2022-07-06 12:51] LABS: HEMOGLOBIN A1c 6.1 %
[2022-07-06 13:26] LABS: ALBUMIN 4.1 GM/DL (3.2-5.2); ALT/SGPT 82 U/L (12-78); BILIRUBIN,TOTAL 1.5 MG/DL (0.2-1.0); BLOOD UREA NITROGEN 12 MG/DL (7-18); CALCIUM LEVEL 9.5 MG/DL (8.5-10.1); CARBON DIOXIDE LEVEL 29 MEQ/L (21-32); CHLORIDE LEVEL 100 MEQ/L (98-107); CHOLESTEROL LEVEL 113 MG/DL (<200); CHOLESTEROL RISK RATIO 3.424 (<5); CREATININE FOR GFR 0.95 MG/DL (0.70-1.30); GLOMERULAR FILTRATION RATE > 60.0 (>60); GLUCOSE, FASTING 109 MG/DL (70-100); HDL CHOLESTEROL 33 MG/DL (>40); LDL CHOLESTEROL 56 MG/DL (<100); NON-HDL-C 80 MG/DL; POTASSIUM SERUM 4.3 MEQ/L (3.5-5.1); SODIUM LEVEL 137 MEQ/L (136-145); TOTAL PROTEIN 7.3 GM/DL (6.4-8.2); TRIGLYCERIDES LEVEL 122 MG/DL (<150)
== END ==
LOC: M PLALAB 08:28
PROVIDERS: ATTEND Nurse Practitioner Adult Health
DX: I10 Essential (primary) hypertension (principal); E78.2 Mixed hyperlipidemia; E03.9 Hypothyroidism, unspecified

== ENCOUNTER → 2022-08-16 | Outpatient (REF) | LOC: M LAB 08:29 | PROVIDERS: ATTEND Nurse Practitioner Adult Health | DX: Z02.1 Encounter for pre-employment examination (principal) ==

== ENCOUNTER 2023-02-06 07:27 | Emergency (ER) | payer OTHER ==
[~2023-02-06] VITALS: Ht 182.9 cm; Wt 158.0 kg
[2023-02-06] MEDS ORDERED: LEVO175T2 (07:36)
[2023-02-06 09:46] LABS: BASO # 0.1 10^3/uL (0.0-0.2); BASO % 0.6 % (0.0-1.0); EOS # 0.1 10^3/uL (0.0-0.5); EOS % 1.3 % (0.0-3.0); HEMATOCRIT 43.1 % (42.0-52.0); HEMOGLOBIN 14.8 g/dl (13.5-17.5); LYMPH # 3.2 10^3/uL (1.5-5.0); LYMPH % 33.3 % (24.0-44.0); MEAN CORPUSCULAR HEMOGLOBIN 29.2 pg (27.0-33.0); MEAN CORPUSCULAR HGB CONC 34.3 g/dl (32.0-36.5); MONO # 0.6 10^3/uL (0.0-0.8); MONO % 6.3 % (2.0-8.0); NEUTROPHILS # 5.6 10^3/uL (1.5-8.5); NEUTROPHILS % 58.4 % (36.0-66.0); PLATELET COUNT, AUTOMATED 283 10^3/uL (150-450); RED BLOOD COUNT 5.07 10^6/uL (4.30-6.10); WHITE BLOOD COUNT 9.6 10^3/uL (4.0-10.0)
[2023-02-06 10:10] LABS: ALBUMIN 4.3 G/DL (3.2-5.2); BILIRUBIN,DIRECT 0.4 MG/DL (<0.4); BILIRUBIN,TOTAL 1.4 MG/DL (0.3-1.2); TOTAL PROTEIN 7.2 G/DL (5.7-8.2)
[2023-02-06] MEDS ORDERED: LIDOCAINE 5% (LIDODERM) PATCH TD ONE (10:25)
[2023-02-06] MEDS ORDERED: METH-1164 PO (10:45)
[2023-02-06] MEDS ORDERED: LIDO5DIS41 TD (10:45)
[2023-02-06] MEDS ORDERED: KETOROLAC 30 MG/ML 1ML VIAL IV ONE (10:50)
[2023-02-06 10:54] VITALS: BP 122/75
== END 2023-02-06 11:14 | disposition home or self-care (01) ==
LOC: M ED 07:27
DX: M62.830 Muscle spasm of back (principal); I10 Essential (primary) hypertension; E78.5 Hyperlipidemia, unspecified; E07.9 Disorder of thyroid, unspecified; F32.A Depression, unspecified; Z79.899 Other long term (current) drug therapy

== ENCOUNTER → 2023-02-22 | Outpatient (CLI) | payer OTHER ==
[~2023-02-22] MED LIST changes: +LEVO175T2; +LIDO5DIS41 TD; +METH-1164 PO
[2023-02-22 13:49] LABS: HEMOGLOBIN A1c 5.6 % (4.0-6.0)
[2023-02-22 14:23] LABS: THYROID STIMULATING HORMONE 3.578 uIU/ML (0.55-4.78)
[2023-02-22 14:27] LABS: ALBUMIN 4.6 G/DL (3.2-5.2); ALKALINE PHOSPHATASE 105 U/L (46-116); ALT/SGPT 39 U/L (7.0-40); AST/SGOT 18 U/L (<34); BILIRUBIN,TOTAL 1.8 MG/DL (0.3-1.2); BLOOD UREA NITROGEN 16 MG/DL (9-23); CALCIUM LEVEL 9.5 MG/DL (8.5-10.1); CARBON DIOXIDE LEVEL 27 MMOL/L (20-31); CHLORIDE LEVEL 101 MMOL/L (98-107); CHOLESTEROL LEVEL 116 MG/DL (<200); CHOLESTEROL RISK RATIO 3.97 (<5); GLOMERULAR FILTRATION RATE > 60.0 (>60); GLUCOSE, FASTING 95 MG/DL (60-100); HDL CHOLESTEROL 29.2 MG/DL (>40); LDL CHOLESTEROL 50.8 MG/DL (<100); NON-HDL-C 86.8 MG/DL; POTASSIUM SERUM 4.2 MMOL/L (3.5-5.1); SODIUM LEVEL 136 MMOL/L (136-145); TOTAL PROTEIN 7.4 G/DL (5.7-8.2); TRIGLYCERIDES LEVEL 180 MG/DL (<150)
== END ==
LOC: M PLALAB 10:11
PROVIDERS: ATTEND Nurse Practitioner Adult Health
DX: I10 Essential (primary) hypertension (principal); E74.39 Other disorders of intestinal carbohydrate absorption; E78.2 Mixed hyperlipidemia; E03.9 Hypothyroidism, unspecified

== ENCOUNTER → 2023-05-15 | Outpatient (CLI) | payer OTHER ==
[~2023-05-15] MED LIST changes: -GABA-283 PO; +GABA-284 PO
[2023-05-15 15:22] LABS: HEMOGLOBIN A1c 4.9 % (4.0-6.0)
[2023-05-15 15:30] LABS: ALBUMIN 4.1 G/DL (3.2-5.2); ALKALINE PHOSPHATASE 92 U/L (46-116); ALT/SGPT 24 U/L (7.0-40); AST/SGOT 14 U/L (<34); BILIRUBIN,TOTAL 1.5 MG/DL (0.3-1.2); BLOOD UREA NITROGEN 15 MG/DL (9-23); CALCIUM LEVEL 9.4 MG/DL (8.5-10.1); CARBON DIOXIDE LEVEL 28 MMOL/L (20-31); CHLORIDE LEVEL 104 MMOL/L (98-107); CREATININE FOR GFR 0.88 MG/DL (0.70-1.30); GLOMERULAR FILTRATION RATE > 60.0 (>60); GLUCOSE, FASTING 81 MG/DL (60-100); POTASSIUM SERUM 4.6 MMOL/L (3.5-5.1); SODIUM LEVEL 139 MMOL/L (136-145)
[2023-05-15 15:34] LABS: THYROID STIMULATING HORMONE 2.162 uIU/ML (0.55-4.78)
== END ==
LOC: M PLALAB 12:52
PROVIDERS: ATTEND Nurse Practitioner Adult Health
DX: E03.9 Hypothyroidism, unspecified (principal); I10 Essential (primary) hypertension; E74.39 Other disorders of intestinal carbohydrate absorption
CPT/HCPCS: 36415; 80053; 83036; 84443; G0463

== ENCOUNTER → 2023-11-03 | Outpatient (CLI) | payer OTHER ==
[~2023-11-03] MED LIST changes: -EFFE37.5 PO; +EFFE37.52 PO; -LUNE2TAB23 PO; +LUNE2TAB28 PO
[2023-11-03 09:56] LABS: BASO # 0.1 10^3/uL (0.0-0.2); BASO % 0.7 % (0.0-1.0); EOS # 0.1 10^3/uL (0.0-0.5); EOS % 1.7 % (0.0-3.0); HEMATOCRIT 45.6 % (42.0-52.0); HEMOGLOBIN 15.4 g/dl (13.5-17.5); LYMPH # 2.2 10^3/uL (1.5-5.0); LYMPH % 30.9 % (24.0-44.0); MEAN CORPUSCULAR HGB CONC 33.8 g/dl (32.0-36.5); MEAN CORPUSCULAR VOLUME 88.9 fl (80.0-96.0); MONO # 0.4 10^3/uL (0.0-0.8); NEUTROPHILS # 4.4 10^3/uL (1.5-8.5); NEUTROPHILS % 61.6 % (36.0-66.0); PLATELET COUNT, AUTOMATED 239 10^3/uL (150-450); RED BLOOD COUNT 5.13 10^6/uL (4.30-6.10); WHITE BLOOD COUNT 7.2 10^3/uL (4.0-10.0)
[2023-11-03 10:06] LABS: HEMOGLOBIN A1c 5.2 % (4.0-6.0)
[2023-11-03 10:07] LABS: INR 1.08; PROTHROMBIN TIME 13.7 SECONDS (12.5-14.5)
[2023-11-03 10:24] LABS: CREATININE, URINE 133.39 MG/DL
[2023-11-03 10:28] LABS: ALBUMIN 4.4 G/DL (3.2-5.2); ALKALINE PHOSPHATASE 106 U/L (46-116); ALT/SGPT 30 U/L (7.0-40); AST/SGOT 21 U/L (<34); BILIRUBIN,TOTAL 1.3 MG/DL (0.3-1.2); BLOOD UREA NITROGEN 15 MG/DL (9-23); CALCIUM LEVEL 9.9 MG/DL (8.5-10.1); CARBON DIOXIDE LEVEL 32 MMOL/L (20-31); CHLORIDE LEVEL 106 MMOL/L (98-107); CHOLESTEROL LEVEL 122 MG/DL (<200); CHOLESTEROL RISK RATIO 2.81 (<5); CREATININE FOR GFR 0.75 MG/DL (0.70-1.30); GLOMERULAR FILTRATION RATE > 60.0 (>60); GLUCOSE, FASTING 88 MG/DL (60-100); HDL CHOLESTEROL 43.3 MG/DL (>40); LDL CHOLESTEROL 66.5 MG/DL (<100); NON-HDL-C 78.7 MG/DL; POTASSIUM SERUM 4.6 MMOL/L (3.5-5.1); SODIUM LEVEL 140 MMOL/L (136-145); TOTAL PROTEIN 7.3 G/DL (5.7-8.2); TRIGLYCERIDES LEVEL 61 MG/DL (<150)
[2023-11-03 10:35] LABS: CREATININE CLEARANCE, URINE 185.3 ML/MIN (85-125); CREATININE, SERUM 0.8 MG/DL (0.70-1.30)
[2023-11-03 11:04] LABS: MAU 24HR URINE 12.8 MG/24HR (0.0-30.0); MAU/MINUTE 8.9 MCG/MIN (0.0-20.0)
[2023-11-03 14:32] LABS: CREATININE,RANDOM URINE 98.8 MG/DL
[2023-11-03 14:33] LABS: TOTAL PROTEIN,RANDOM URINE < 6.0 MG/DL (0.0-14.0)
== END ==
LOC: M LAB 08:38
PROVIDERS: ATTEND Nurse Practitioner Family
DX: Z52.4 Kidney donor (principal)

== ENCOUNTER → 2024-02-06 | Outpatient (REF) | payer OTHER ==
[2024-02-06 12:59] LABS: TOTAL VOLUME, URINE 3000 ML
[2024-02-06 13:00] LABS: APPEARANCE, URINE HAZY (CLEAR); BACTERIA, URINE AUTO NEGATIVE (NEGATIVE); BILIRUBIN, URINE AUTO NEGATIVE (NEGATIVE); BLOOD, URINE BLOOD NEGATIVE (NEGATIVE); COLOR, URINE YELLOW (YELLOW); GLUCOSE, URINE (UA) AUTO NEGATIVE (NEGATIVE); KETONE, URINE AUTO NEGATIVE (NEGATIVE); LEUKOCYTE ESTERASE, URINE AUTO NEGATIVE (NEGATIVE); MUCUS, URINE SMALL (NEGATIVE); NITRITE, URINE AUTO NEGATIVE (NEGATIVE); PROTEIN, URINE AUTO NEGATIVE (NEGATIVE); RBC, URINE AUTO 0 /HPF (0-3); SPECIFIC GRAVITY URINE AUTO 1.015 (1.002-1.035); SQUAMOUS EPITHELIAL CELL UR AU 0 /HPF (0-6); UROBILINOGEN, URINE AUTO 0.2 mg/dL (0.0-2.0); WBC, URINE AUTO 1 /HPF (0-3)
[2024-02-06 13:10] LABS: CREATININE CLEARANCE, URINE 173.4 ML/MIN (85-125); CREATININE, SERUM 0.8 MG/DL (0.70-1.30); CREATININE, URINE 66.59 MG/DL
[2024-02-06 13:11] LABS: MALB URINE SIEMENS < 3.0 MG/L; MAU/MINUTE 6.2 MCG/MIN (0.0-20.0)
[2024-02-06 13:22] LABS: BLOOD UREA NITROGEN 18 MG/DL (9-23); CALCIUM LEVEL 9.9 MG/DL (8.5-10.1); CARBON DIOXIDE LEVEL 30 MMOL/L (20-31); CHLORIDE LEVEL 102 MMOL/L (98-107); CREATININE FOR GFR 0.81 MG/DL (0.70-1.30); GLOMERULAR FILTRATION RATE > 60.0 (>60); GLUCOSE, FASTING 82 MG/DL (60-100); POTASSIUM SERUM 4.6 MMOL/L (3.5-5.1); SODIUM LEVEL 136 MMOL/L (136-145)
[2024-02-06 14:23] LABS: CREATININE,RANDOM URINE 63.4 MG/DL; TOTAL PROTEIN,RANDOM URINE 11.5 MG/DL (0.0-14.0)
== END ==
LOC: M LAB 11:18 → EDSTATUS 14:24
PROVIDERS: ATTEND Nurse Practitioner Family
DX: Z52.4 Kidney donor (principal)

== ENCOUNTER → 2024-03-17 | Outpatient (CLI) | payer OTHER | LOC: M LAB 16:22 | PROVIDERS: ATTEND Nurse Practitioner Family | DX: Z52.4 Kidney donor (principal) ==

== ENCOUNTER 2024-04-27 18:45 | Emergency (ER) | payer OTHER ==
[~2024-04-27] VITALS: Ht 182.9 cm; Wt 116.3 kg
[2024-04-27 18:46] VITALS: BP 135/74; TEMP 98.1; O2SAT 100
[2024-04-27] MEDS ORDERED: LOTR1CRE12 TOP (20:00)
== END 2024-04-27 20:16 | disposition home or self-care (01) ==
LOC: M ED 18:45
DX: Z48.817 Encounter for surgical aftercare following surgery on the skin and subcutaneous tissue (principal); Z52.4 Kidney donor; E03.9 Hypothyroidism, unspecified; I10 Essential (primary) hypertension; Z79.899 Other long term (current) drug therapy

== ENCOUNTER 2024-05-31 19:04 | Emergency (ER) | payer OTHER ==
[~2024-05-31] VITALS: Ht 182.9 cm; Wt 118.1 kg
[~2024-05-31 19:04] MED LIST changes: +LOTR1CRE12 TOP
[2024-05-31 19:06] VITALS: TEMP 97.6
[2024-05-31 19:57] LABS: BASO # 0.1 10^3/uL (0.0-0.2); BASO % 0.5 % (0.0-1.0); EOS # 0.2 10^3/uL (0.0-0.5); EOS % 1.7 % (0.0-3.0); HEMATOCRIT 41.4 % (42.0-52.0); HEMOGLOBIN 14.5 g/dl (13.5-17.5); LYMPH # 3.4 10^3/uL (1.5-5.0); MEAN CORPUSCULAR HEMOGLOBIN 30.2 pg (27.0-33.0); MEAN CORPUSCULAR VOLUME 86.3 fl (80.0-96.0); MONO # 0.9 10^3/uL (0.0-0.8); MONO % 9.1 % (2.0-8.0); NEUTROPHILS # 5.2 10^3/uL (1.5-8.5); NEUTROPHILS % 53.4 % (36.0-66.0); PLATELET COUNT, AUTOMATED 240 10^3/uL (150-450); WHITE BLOOD COUNT 9.8 10^3/uL (4.0-10.0)
[2024-05-31 20:24] LABS: LIPASE 47 U/L (12-53)
[2024-05-31 20:27] LABS: ALBUMIN 4.3 G/DL (3.2-5.2); ALKALINE PHOSPHATASE 109 U/L (46-116); ALT/SGPT 41 U/L (7.0-40); AST/SGOT 25 U/L (<34); BILIRUBIN,DIRECT 0.2 MG/DL (<0.4); BILIRUBIN,TOTAL 0.9 MG/DL (0.3-1.2); BLOOD UREA NITROGEN 26 MG/DL (9-23); CARBON DIOXIDE LEVEL 28 MMOL/L (20-31); CHLORIDE LEVEL 107 MMOL/L (98-107); CREATININE FOR GFR 1.26 MG/DL (0.70-1.30); GLOMERULAR FILTRATION RATE > 60.0 (>60); GLUCOSE, FASTING 94 MG/DL (60-100); POTASSIUM SERUM 4.3 MMOL/L (3.5-5.1); SODIUM LEVEL 137 MMOL/L (136-145); TOTAL PROTEIN 7.4 G/DL (5.7-8.2)
[2024-05-31 23:59] VITALS: BP 126/79; O2SAT 98
== END 2024-06-01 | disposition home or self-care (01) ==
LOC: M ED 19:04
DX: Z52.4 Kidney donor (principal); D35.02 Benign neoplasm of left adrenal gland; Z48.00 Encounter for change or removal of nonsurgical wound dressing; I10 Essential (primary) hypertension; F17.200 Nicotine dependence, unspecified, uncomplicated; Z79.899 Other long term (current) drug therapy

== ENCOUNTER → 2024-07-12 | Outpatient (CLI) | payer OTHER ==
[2024-07-12 15:23] LABS: APPEARANCE, URINE CLEAR (CLEAR); BACTERIA, URINE AUTO NEGATIVE (NEGATIVE); BILIRUBIN, URINE AUTO NEGATIVE (NEGATIVE); BLOOD, URINE BLOOD NEGATIVE (NEGATIVE); COLOR, URINE YELLOW (YELLOW); GLUCOSE, URINE (UA) AUTO NEGATIVE (NEGATIVE); KETONE, URINE AUTO NEGATIVE (NEGATIVE); LEUKOCYTE ESTERASE, URINE AUTO NEGATIVE (NEGATIVE); NITRITE, URINE AUTO NEGATIVE (NEGATIVE); PROTEIN, URINE AUTO NEGATIVE (NEGATIVE); RBC, URINE AUTO 1 /HPF (0-3); SPECIFIC GRAVITY URINE AUTO 1.012 (1.002-1.035); SQUAMOUS EPITHELIAL CELL UR AU 0 /HPF (0-6); UROBILINOGEN, URINE AUTO 0.2 mg/dL (0.0-2.0); WBC, URINE AUTO 0 /HPF (0-3)
[2024-07-12 15:59] LABS: BLOOD UREA NITROGEN 19 MG/DL (9-23); CALCIUM LEVEL 9.7 MG/DL (8.5-10.1); CARBON DIOXIDE LEVEL 26 MMOL/L (20-31); CHLORIDE LEVEL 105 MMOL/L (98-107); CREATININE FOR GFR 1.21 MG/DL (0.70-1.30); GLOMERULAR FILTRATION RATE > 60.0 (>60); GLUCOSE, FASTING 96 MG/DL (60-100); POTASSIUM SERUM 4.6 MMOL/L (3.5-5.1); SODIUM LEVEL 137 MMOL/L (136-145)
[2024-07-12 16:03] LABS: CREATININE, URINE 75.9 MG/DL; MALB URINE SIEMENS < 3.0 MG/L; MAU/CREAT RATIO 3.9 MCG/MG (0.0-30.0)
== END ==
LOC: M LAB 14:43
PROVIDERS: ATTEND Nurse Practitioner Family
DX: Z52.4 Kidney donor (principal)

== ENCOUNTER → 2024-10-16 | Outpatient (CLI) | payer OTHER ==
[2024-10-16 11:09] LABS: APPEARANCE, URINE HAZY (CLEAR); BACTERIA, URINE AUTO NEGATIVE (NEGATIVE); BILIRUBIN, URINE AUTO NEGATIVE (NEGATIVE); BLOOD, URINE BLOOD NEGATIVE (NEGATIVE); COLOR, URINE YELLOW (YELLOW); GLUCOSE, URINE (UA) AUTO NEGATIVE (NEGATIVE); KETONE, URINE AUTO NEGATIVE (NEGATIVE); LEUKOCYTE ESTERASE, URINE AUTO NEGATIVE (NEGATIVE); MUCUS, URINE SMALL (NEGATIVE); NITRITE, URINE AUTO NEGATIVE (NEGATIVE); PROTEIN, URINE AUTO NEGATIVE (NEGATIVE); RBC, URINE AUTO 2 /HPF (0-3); SPECIFIC GRAVITY URINE AUTO 1.009 (1.002-1.035); SQUAMOUS EPITHELIAL CELL UR AU 0 /HPF (0-6); UROBILINOGEN, URINE AUTO 0.2 mg/dL (0.0-2.0); WBC, URINE AUTO 1 /HPF (0-3)
[2024-10-16 11:25] LABS: TOTAL PROTEIN,RANDOM URINE 18.9 MG/DL (0.0-14.0)
[2024-10-16 11:30] LABS: CREATININE, URINE 56.5 MG/DL; CREATININE,RANDOM URINE 56.5 MG/DL
[2024-10-16 11:31] LABS: BLOOD UREA NITROGEN 22 MG/DL (9-23); CALCIUM LEVEL 9.6 MG/DL (8.5-10.1); CARBON DIOXIDE LEVEL 29 MMOL/L (20-31); CHLORIDE LEVEL 104 MMOL/L (98-107); CREATININE FOR GFR 1.25 MG/DL (0.70-1.30); GLOMERULAR FILTRATION RATE > 60.0 (>60); GLUCOSE, FASTING 87 MG/DL (60-100); POTASSIUM SERUM 4.9 MMOL/L (3.5-5.1); SODIUM LEVEL 140 MMOL/L (136-145)
== END ==
LOC: M LAB 10:03
PROVIDERS: ATTEND Nurse Practitioner Family
DX: Z52.4 Kidney donor (principal)

== ENCOUNTER → 2025-01-13 | Outpatient (REF) | LOC: M RAD 08:54 → EDSTATUS 09:30 | PROVIDERS: ATTEND Nurse Practitioner Family | DX: N50.89 Other specified disorders of the male genital organs (principal) ==

== ENCOUNTER → 2025-04-29 | Outpatient (CLI) | payer OTHER ==
[~2025-04-29] MED LIST changes: +LIDO1ADH93 TD; -LIDO5DIS41 TD
[2025-04-29 16:35] LABS: PLATELET COUNT, AUTOMATED 237 10^3/uL (150-450)
[2025-04-29 17:05] LABS: ESTIMATED AVERAGE GLUCOSE 105.0 MG/DL (60-110)
[2025-04-29 17:31] LABS: IRON (FE) 70 UG/DL (65-175); PERCENT SATURATION 21.6 % (19.7-50.0)
[2025-04-29 17:32] LABS: ALT/SGPT 35 U/L (7.0-40); AST/SGOT 27 U/L (<34); CALCIUM LEVEL 10.0 MG/DL (8.5-10.1); CARBON DIOXIDE LEVEL 29 MMOL/L (20-31); CHLORIDE LEVEL 103 MMOL/L (98-107); CHOLESTEROL LEVEL 138 MG/DL (<200); CHOLESTEROL RISK RATIO 3.48 (<5); CREATININE FOR GFR 1.39 MG/DL (0.70-1.30); GLOMERULAR FILTRATION RATE 65.7 (>60); LDL CHOLESTEROL 61.0 MG/DL (<100); NON-HDL-C 98.4 MG/DL; POTASSIUM SERUM 4.8 MMOL/L (3.5-5.1); SODIUM LEVEL 138 MMOL/L (136-145); TRIGLYCERIDES LEVEL 187 MG/DL (<150)
[2025-04-29 17:33] LABS: TOTAL 25(OH) VITAMIN D 31.0 NG/ML (20.0-100.0)
[2025-04-29 17:34] LABS: VITAMIN B12 LEVEL 1534 PG/ML (211-911)
== END ==
LOC: M LAB 15:41
DX: E44.0 Moderate protein-calorie malnutrition (principal)

== ENCOUNTER → 2025-05-05 | Outpatient (CLI) | payer OTHER ==
[2025-05-05 15:58] LABS: APPEARANCE, URINE CLEAR (CLEAR); BACTERIA, URINE AUTO NEGATIVE (NEGATIVE); BILIRUBIN, URINE AUTO NEGATIVE (NEGATIVE); BLOOD, URINE BLOOD NEGATIVE (NEGATIVE); GLUCOSE, URINE (UA) AUTO NEGATIVE (NEGATIVE); KETONE, URINE AUTO NEGATIVE (NEGATIVE); LEUKOCYTE ESTERASE, URINE AUTO NEGATIVE (NEGATIVE); MUCUS, URINE SMALL (NEGATIVE); NITRITE, URINE AUTO NEGATIVE (NEGATIVE); PROTEIN, URINE AUTO NEGATIVE (NEGATIVE); RBC, URINE AUTO 0 /HPF (0-3); SPECIFIC GRAVITY URINE AUTO 1.008 (1.002-1.035); SQUAMOUS EPITHELIAL CELL UR AU 0 /HPF (0-6); UROBILINOGEN, URINE AUTO 0.2 mg/dL (0.0-2.0); WBC, URINE AUTO 0 /HPF (0-3)
[2025-05-05 16:16] LABS: TOTAL PROTEIN,RANDOM URINE 6.9 MG/DL (0.0-14.0)
[2025-05-05 16:21] LABS: CREATININE, URINE 60.9 MG/DL; MALB URINE SIEMENS < 3.0 MG/L
[2025-05-05 16:55] LABS: CALCIUM LEVEL 9.7 MG/DL (8.5-10.1); CARBON DIOXIDE LEVEL 29.0 MMOL/L (20-31); CHLORIDE LEVEL 103.0 MMOL/L (98-107); CREATININE FOR GFR 1.33 MG/DL (0.70-1.30); GLOMERULAR FILTRATION RATE 69.3 (>60); POTASSIUM SERUM 4.2 MMOL/L (3.5-5.1); SODIUM LEVEL 139.0 MMOL/L (136-145)
== END ==
LOC: M LAB 15:14
PROVIDERS: ATTEND Nurse Practitioner Family
DX: Z52.4 Kidney donor (principal)

== ENCOUNTER → 2025-06-19 | Outpatient (CLI) | payer OTHER ==
[2025-06-19 11:46] LABS: ESTIMATED AVERAGE GLUCOSE 108.0 MG/DL (60-110)
[2025-06-19 11:52] LABS: ALT/SGPT 32.0 U/L (7.0-40); AST/SGOT 24.0 U/L (<34); CALCIUM LEVEL 9.5 MG/DL (8.5-10.1); CARBON DIOXIDE LEVEL 27.0 MMOL/L (20-31); CHLORIDE LEVEL 103.0 MMOL/L (98-107); CHOLESTEROL LEVEL 122.0 MG/DL (<200); CHOLESTEROL RISK RATIO 2.85 (<5); CREATININE FOR GFR 1.25 MG/DL (0.70-1.30); FREE T4 1.1 NG/DL (0.89-1.76); GLOMERULAR FILTRATION RATE 74.7 (>60); LDL CHOLESTEROL 48.2 MG/DL (<100); NON-HDL-C 79.2 MG/DL; POTASSIUM SERUM 4.6 MMOL/L (3.5-5.1); SODIUM LEVEL 140.0 MMOL/L (136-145); TRIGLYCERIDES LEVEL 155.0 MG/DL (<150)
[2025-06-19 11:53] LABS: VITAMIN B12 LEVEL 1328.0 PG/ML (211-911)
== END ==
LOC: M RAD 10:09
PROVIDERS: ATTEND Nurse Practitioner Adult Health
DX: I10 Essential (primary) hypertension (principal); E74.39 Other disorders of intestinal carbohydrate absorption; R19.4 Change in bowel habit; E03.9 Hypothyroidism, unspecified; Z98.84 Bariatric surgery status

== ENCOUNTER → 2025-07-22 | Outpatient (CLI) | payer OTHER | LOC: M RAD 14:31 | PROVIDERS: ATTEND Nurse Practitioner Family | DX: N43.3 Hydrocele, unspecified (principal) ==